=== PATIENT | male | born 1970 | race Caucasian/White ===

== ENCOUNTER 2021-11-19 07:17 | Inpatient (IN) | payer MEDICARE, MEDICAID ==
[~2021-11-19] VITALS: Ht 175.3 cm; Wt 85.3 kg
[2021-11-19 08:13] LABS: HEMATOCRIT. 28.2 % (42.0-52.0); HEMOGLOBIN. 9.4 g/dL (14.0-18.0); MEAN CORPUSCULAR HEMOGLOBIN 31.1 pg (28.0-32.0); MEAN CORPUSCULAR VOLUME 93.7 fL (80.0-94.0); MEAN PLATELET VOLUME 6.9 fl (7.4-10.4); PLATELET 393 x1000/uL (130-400); RED BLOOD CELL COUNT 3.01 mill/uL (4.7-6.1); RED CELL DISTRIBUTION WIDTH 19.1 % (11.6-14.6)
[2021-11-19] MEDS ORDERED: CLONIDINE 0.1MG TABLET PO PRN (08:15)
[2021-11-19 08:18] LABS: CHLORIDE 97 mEq/L (98-107)
[2021-11-19 08:49] LABS: PLATELET ESTIMATE NORMAL
[2021-11-19] MEDS: ASPIRIN 325MG EC TABLET PO SCH ×2 (09:00→09:29)
[2021-11-19 09:18] LABS: PHOSPHORUS 3.1 mg/dL (2.5-4.9)
[2021-11-19] MEDS ORDERED: INSULIN GLARGINE UD 100 UNITS/ML SYR SUBCUT SCH (10:00)
[2021-11-19] MEDS: FOLIC ACID/VITAMIN B COMP W-C TABLET PO SCH (10:06)
[2021-11-19] MEDS: SEVELAMER CARBONATE 800 MG TABLET PO SCH ×3 (10:07→19:57)
[2021-11-19] MEDS: AMLODIPINE 10MG TABLET PO SCH (10:13)
[2021-11-19] MEDS: METOPROLOL TARTRATE 25MG TABLET PO SCH ×2 (10:16→19:55)
[2021-11-19 11:45] LABS: HEPATITIS B SURFACE ANTIGEN NEGATIVE
[2021-11-19] MEDS ORDERED: ACETAMINOPHEN 325MG TABLET PO PRN (13:30)
[2021-11-19] MEDS ORDERED: DOCUSATE SODIUM 100MG CAPSULE PO PRN (13:30)
[2021-11-19] MEDS ORDERED: MORPHINE SULFATE 2 MG/ML CPJ (NOT FOR IM USE) IV PRN (13:30)
[2021-11-19] MEDS ORDERED: MAGNESIUM/ALUMINUM HYDROXIDE/SIMETHICONE 30ML UDC PO PRN (13:30)
[2021-11-19] MEDS ORDERED: GUAIFENESIN 200MG/10ML SUGAR FREE UDC PO PRN (13:30)
[2021-11-19] MEDS ORDERED: ONDANSETRON HCL 4MG/2ML INJ IV PRN (13:30)
[2021-11-19] MEDS ORDERED: ENOXAPARIN 40MG/0.4ML SYR SUBCUT SCH (13:30)
[2021-11-19] MEDS: ENOXAPARIN 30MG/0.3ML SYR SUBCUT SCH (19:55)
[2021-11-19] MEDS: EPOETIN ALFA-EPBX 4,000 UNIT/ML VIAL SUBCUT SCH (19:58)
[2021-11-19] MEDS: ATORVASTATIN CALCIUM 40MG TABLET PO SCH (19:58)
[2021-11-19] MEDS ORDERED: NALOXONE HCL 0.4MG/ML VIAL IV PRN (22:45)
[2021-11-19 23:15] VITALS: BP 161/88
[2021-11-20] MEDS ORDERED: CLON0.1T PO (01:14)
[2021-11-20] MEDS ORDERED: AMLO10TA80 MT (01:14)
[2021-11-20] MEDS ORDERED: LOPERAMIDE HCL 2MG CAPSULE PO NR (01:15)
[2021-11-20] MEDS ORDERED: METO25TA6 MT (01:16)
[2021-11-20] MEDS ORDERED: SEVE800T8 MT (01:16)
[2021-11-20] MEDS ORDERED: ASPI-986 PO (01:16)
[2021-11-20] MEDS ORDERED: INSLIS SUBCUT (01:16)
[2021-11-20] MEDS ORDERED: INSU100I28 SQ (01:17)
[2021-11-20 04:00] VITALS: BP 159/67
[2021-11-20] MEDS ORDERED: DEXTROSE 50% WATER 50ML SYRINGE IV PRN (05:45)
[2021-11-20] MEDS: INSULIN LISPRO 100 UNITS/ML SUBCUT SCH ×4 (07:50→21:00)
[2021-11-20] MEDS: BLOOD SUGAR DIAGNOSTIC STRIP TEST SCH ×4 (07:51→21:41)
[2021-11-20 08:00] VITALS: BP 166/94
[2021-11-20 08:04] LABS: HEMATOCRIT. 25.2 % (42.0-52.0); HEMOGLOBIN. 8.3 g/dL (14.0-18.0); MEAN CORPUSCULAR HEMOGLOBIN 30.9 pg (28.0-32.0); MEAN CORPUSCULAR VOLUME 93.7 fL (80.0-94.0); MEAN PLATELET VOLUME 7.2 fl (7.4-10.4); PLATELET 354 x1000/uL (130-400); RED BLOOD CELL COUNT 2.69 mill/uL (4.7-6.1); RED CELL DISTRIBUTION WIDTH 19.5 % (11.6-14.6)
[2021-11-20 08:12] LABS: CHLORIDE 100 mEq/L (98-107)
[2021-11-20 08:20] LABS: LDL CHOLESTEROL 37 mg/dL (5-100)
[2021-11-20 08:22] LABS: HDL CHOLESTEROL 71 mg/dL (40-59)
[2021-11-20] MEDS: SEVELAMER CARBONATE 800 MG TABLET PO SCH (08:42)
[2021-11-20] MEDS: FOLIC ACID/VITAMIN B COMP W-C TABLET PO SCH (08:42)
[2021-11-20] MEDS ORDERED: INSULIN GLARGINE UD 100 UNITS/ML SYR SUBCUT SCH (10:00)
[2021-11-20] MEDS: AMLODIPINE 10MG TABLET PO SCH (10:35)
[2021-11-20] MEDS: ASPIRIN 325MG EC TABLET PO SCH (10:35)
[2021-11-20] MEDS: METOPROLOL TARTRATE 25MG TABLET PO SCH ×2 (10:36→21:41)
[2021-11-20 12:00] VITALS: BP 180/94
[2021-11-20 14:24] LABS: PLATELET ESTIMATE NORMAL
[2021-11-20] MEDS: ENOXAPARIN 30MG/0.3ML SYR SUBCUT SCH (15:07)
[2021-11-20] MEDS: CLONIDINE 0.1MG TABLET PO PRN (15:10)
[2021-11-20 16:00] VITALS: BP 159/68
[2021-11-20 20:00] VITALS: BP 151/81
[2021-11-20] MEDS: ATORVASTATIN CALCIUM 40MG TABLET PO SCH (21:41)
[2021-11-21] VITALS (18 sets, daily range): BP systolic 144–179; BP diastolic 73–94
[2021-11-21 06:31] LABS: HEMATOCRIT. 24.3 % (42.0-52.0); HEMOGLOBIN. 8.5 g/dL (14.0-18.0); MEAN CORPUSCULAR HEMOGLOBIN 32.5 pg (28.0-32.0); MEAN CORPUSCULAR VOLUME 92.7 fL (80.0-94.0); PLATELET 324 x1000/uL (130-400); RED BLOOD CELL COUNT 2.62 mill/uL (4.7-6.1); RED CELL DISTRIBUTION WIDTH 19.8 % (11.6-14.6)
[2021-11-21] MEDS: BLOOD SUGAR DIAGNOSTIC STRIP TEST SCH ×4 (06:37→21:00)
[2021-11-21 06:56] LABS: CHLORIDE 100 mEq/L (98-107)
[2021-11-21 07:10] LABS: PHOSPHORUS 4.2 mg/dL (2.5-4.9)
[2021-11-21] MEDS: INSULIN LISPRO 100 UNITS/ML SUBCUT SCH ×4 (07:32→22:27)
[2021-11-21] MEDS: METOPROLOL TARTRATE 25MG TABLET PO SCH ×2 (08:09→22:26)
[2021-11-21] MEDS: AMLODIPINE 10MG TABLET PO SCH (08:09)
[2021-11-21] MEDS: FOLIC ACID/VITAMIN B COMP W-C TABLET PO SCH (08:09)
[2021-11-21] MEDS: ASPIRIN 325MG EC TABLET PO SCH (08:10)
[2021-11-21] MEDS: CLONIDINE 0.1MG TABLET PO PRN (08:10)
[2021-11-21] MEDS ORDERED: REGADENOSON 0.4 MG/5 ML IV NR (08:30)
[2021-11-21] MEDS ORDERED: REGADENOSON 0.4 MG/5 ML IV ONE (09:34)
[2021-11-21] MEDS: HYDRALAZINE HCL 25MG TABLET PO SCH ×2 (11:16→22:38)
[2021-11-21 13:00] LABS: INR 1.1; PROTHROMBIN TIME 11.8 sec (9.6-11.0)
[2021-11-21 13:23] LABS: BG BASE EXCESS 0.1 mmol/L (-2.0-2.0); BG CARBOXYHEMOGLOBIN 0.2 % (0.5-1.5); BG FRACTION INSPIRED OXYGEN 28; BG HCO3 ACT 23.8 mmol/L (22.0-26.0); BG METHEMOGLOBIN 0.3 % (0.0-1.5); BG OXYHEMOGLOBIN 90.5 % (94.0-97.0); BG PO2 63.4 mmHg (75.0-100.0); BG SAMPLE SITE RIGHT RADIAL; BG TOTAL HEMOGLOBIN 9.7 g/dL (12.0-18.0); BG VENT MODE NASAL CANNULA
[2021-11-21] MEDS ORDERED: LIDOCAINE HCL 1% 20ML VIAL (Pyxis) INJ ONE (13:45)
[2021-11-21] MEDS ORDERED: FENTANYL CITRATE/PF 50MCG/ML 2ML VIAL ONE (13:45)
[2021-11-21] MEDS ORDERED: SODIUM BICARBONATE 4% (2.4MEQ) 5ML VIAL IV ONE (13:45)
[2021-11-21 14:04] LABS: PLATELET ESTIMATE NORMAL
[2021-11-21] MEDS ORDERED: FENTANYL CITRATE/PF 50MCG/ML 2ML VIAL IV SCH (15:15)
[2021-11-21] MEDS: HYDROCODONE/ACETAMINOPHEN 5/325MG TABLET PO PRN (22:25)
[2021-11-21] MEDS: ATORVASTATIN CALCIUM 40MG TABLET PO SCH (22:25)
[2021-11-21] MEDS: EPOETIN ALFA-EPBX 4,000 UNIT/ML VIAL SUBCUT SCH (22:40)
[2021-11-22] VITALS: BP 160/79
[2021-11-22 04:00] VITALS: BP 154/82
[2021-11-22] MEDS: BLOOD SUGAR DIAGNOSTIC STRIP TEST SCH ×4 (07:44→21:00)
[2021-11-22] MEDS: INSULIN LISPRO 100 UNITS/ML SUBCUT SCH ×4 (07:44→21:00)
[2021-11-22 08:00] VITALS: BP 160/82
[2021-11-22 08:17] LABS: HEMATOCRIT. 26.3 % (42.0-52.0); HEMOGLOBIN. 8.7 g/dL (14.0-18.0); MEAN CORPUSCULAR HEMOGLOBIN 31.1 pg (28.0-32.0); MEAN PLATELET VOLUME 7.5 fl (7.4-10.4); PLATELET 321 x1000/uL (130-400); RED CELL DISTRIBUTION WIDTH 19.9 % (11.6-14.6)
[2021-11-22] MEDS: FOLIC ACID/VITAMIN B COMP W-C TABLET PO SCH (09:30)
[2021-11-22] MEDS: HYDRALAZINE HCL 25MG TABLET PO SCH (09:33)
[2021-11-22] MEDS: HYDROCODONE/ACETAMINOPHEN 5/325MG TABLET PO PRN ×2 (09:34→21:46)
[2021-11-22] MEDS: AMLODIPINE 10MG TABLET PO SCH (09:34)
[2021-11-22] MEDS: METOPROLOL TARTRATE 25MG TABLET PO SCH ×2 (09:34→21:46)
[2021-11-22 10:46] LABS: PLATELET ESTIMATE NORMAL
[2021-11-22 12:00] VITALS: BP 109/73
[2021-11-22 16:00] VITALS: BP 140/76
[2021-11-22 20:00] VITALS: BP 169/80
[2021-11-22] MEDS: ATORVASTATIN CALCIUM 40MG TABLET PO SCH (21:45)
[2021-11-22] MEDS: HYDRALAZINE HCL 50MG TABLET PO SCH (21:49)
[2021-11-23 00:43] VITALS: BP 148/76
[2021-11-23 04:26] VITALS: BP 145/77
[2021-11-23] MEDS: BLOOD SUGAR DIAGNOSTIC STRIP TEST SCH ×4 (07:20→21:00)
[2021-11-23] MEDS: INSULIN LISPRO 100 UNITS/ML SUBCUT SCH ×4 (07:50→21:00)
[2021-11-23 08:00] VITALS: BP 160/82
[2021-11-23] MEDS: FOLIC ACID/VITAMIN B COMP W-C TABLET PO SCH (09:37)
[2021-11-23] MEDS: AMLODIPINE 10MG TABLET PO SCH (09:38)
[2021-11-23] MEDS: METOPROLOL TARTRATE 25MG TABLET PO SCH ×2 (09:38→22:06)
[2021-11-23] MEDS: HYDRALAZINE HCL 50MG TABLET PO SCH ×2 (09:38→22:06)
[2021-11-23 12:00] VITALS: BP 148/73
[2021-11-23 16:00] VITALS: BP 132/65
[2021-11-23 20:00] VITALS: BP 157/83
[2021-11-23] MEDS: ATORVASTATIN CALCIUM 40MG TABLET PO SCH (22:06)
[2021-11-23] MEDS: HYDROCODONE/ACETAMINOPHEN 5/325MG TABLET PO PRN (22:07)
[2021-11-24 00:11] VITALS: BP 143/77
[2021-11-24 04:49] VITALS: BP 141/77
[2021-11-24] MEDS: BLOOD SUGAR DIAGNOSTIC STRIP TEST SCH ×2 (06:55→12:12)
[2021-11-24 07:04] LABS: HEMATOCRIT. 25.5 % (42.0-52.0); HEMOGLOBIN. 8.5 g/dL (14.0-18.0); MEAN CORPUSCULAR HEMOGLOBIN 31.6 pg (28.0-32.0); MEAN CORPUSCULAR VOLUME 94.6 fL (80.0-94.0); MEAN PLATELET VOLUME 7.6 fl (7.4-10.4); PLATELET 308 x1000/uL (130-400); RED CELL DISTRIBUTION WIDTH 19.8 % (11.6-14.6)
[2021-11-24 07:35] LABS: CHLORIDE 104 mEq/L (98-107)
[2021-11-24] MEDS: INSULIN LISPRO 100 UNITS/ML SUBCUT SCH ×2 (07:50→12:12)
[2021-11-24 08:20] VITALS: BP 154/75
[2021-11-24] MEDS: HYDRALAZINE HCL 50MG TABLET PO SCH (09:23)
[2021-11-24] MEDS: AMLODIPINE 10MG TABLET PO SCH (09:23)
[2021-11-24] MEDS: FOLIC ACID/VITAMIN B COMP W-C TABLET PO SCH (09:23)
[2021-11-24] MEDS: METOPROLOL TARTRATE 25MG TABLET PO SCH (09:23)
[2021-11-24 11:53] VITALS: BP 151/75
[2021-11-24 15:13] VITALS: BP 151/75
[2021-11-24 15:56] VITALS: BP 142/78
[2021-11-24 16:00] LABS: PLATELET ESTIMATE NORMAL
== END 2021-11-24 16:32 | disposition home health service (06) | DRG 205 ==
LOC: ER 07:56 → MICUSO 10:12 → EDBEDREQ 10:17 → 6WST 22:34
PROVIDERS: ADMIT Hospitalist; ATTEND Hospitalist
PROC: 5A1D70Z Performance of Urinary Filtration, Intermittent, Less than 6 Hours Per Day (ICD-10-PCS; principal; 2021-11-20)
PROC: 0W9B30Z Drainage of Left Pleural Cavity with Drainage Device, Percutaneous Approach (ICD-10-PCS; 2021-11-21)
PROC: 5A1D70Z Performance of Urinary Filtration, Intermittent, Less than 6 Hours Per Day (ICD-10-PCS; 2021-11-22)
PROC: 5A1D70Z Performance of Urinary Filtration, Intermittent, Less than 6 Hours Per Day (ICD-10-PCS; 2021-11-24)
DX: M94.0 Chondrocostal junction syndrome [Tietze] (principal); E43 Unspecified severe protein-calorie malnutrition; N18.6 End stage renal disease; I13.2 Hypertensive heart and chronic kidney disease with heart failure and with stage 5 chronic kidney disease, or end stage renal disease; I69.351 Hemiplegia and hemiparesis following cerebral infarction affecting right dominant side; N25.81 Secondary hyperparathyroidism of renal origin; Z94.1 Heart transplant status; L97.419 Non-pressure chronic ulcer of right heel and midfoot with unspecified severity; J91.8 Pleural effusion in other conditions classified elsewhere; J93.9 Pneumothorax, unspecified; J98.11 Atelectasis; I25.10 Atherosclerotic heart disease of native coronary artery without angina pectoris; E11.621 Type 2 diabetes mellitus with foot ulcer; E11.22 Type 2 diabetes mellitus with diabetic chronic kidney disease; I50.9 Heart failure, unspecified; I27.20 Pulmonary hypertension, unspecified; I25.5 Ischemic cardiomyopathy; E11.51 Type 2 diabetes mellitus with diabetic peripheral angiopathy without gangrene; E78.5 Hyperlipidemia, unspecified; Z20.822 Contact with and (suspected) exposure to COVID-19; I45.10 Unspecified right bundle-branch block; Z99.2 Dependence on renal dialysis; Z95.1 Presence of aortocoronary bypass graft; Z79.899 Other long term (current) drug therapy; Z83.3 Family history of diabetes mellitus; Z82.49 Family history of ischemic heart disease and other diseases of the circulatory system; Z82.3 Family history of stroke; Z87.01 Personal history of pneumonia (recurrent); Z89.422 Acquired absence of other left toe(s); Z89.421 Acquired absence of other right toe(s); I69.322 Dysarthria following cerebral infarction; Z68.27 Body mass index [BMI] 27.0-27.9, adult
CPT/HCPCS: 36415; 36600; 71045; 71250; 77012; 78452; 80048; 80053; 80061; 82375; 82805; 82962; 83036; 83735; 83880; 84100; 84484; 85025; 86705; 86709; 86803; 87075; 87340; 87426; 93005; 93017; 93306; 93970; 99285; A9500; C1729; J0885; J1650; J1815; J2785; J3010; J3490

== ENCOUNTER → 2021-12-12 | Day surgery (SDC) | payer MEDICARE, MEDICAID ==
[~2021-12-12] MED LIST: AMLO10TA80 MT; ASPI-986 PO; CLON0.1T PO; INSLIS SUBCUT; INSU100I28 SQ; METO25TA6 MT; SEVE800T8 MT
== END | disposition home or self-care (01) ==
LOC: RADANGIO 07:46
PROVIDERS: ATTEND Internal Medicine Nephrology
DX: I51.7 Cardiomegaly (principal); Z79.82 Long term (current) use of aspirin; Z79.4 Long term (current) use of insulin; Z79.899 Other long term (current) drug therapy; Z98.890 Other specified postprocedural states; Z83.3 Family history of diabetes mellitus; Z20.822 Contact with and (suspected) exposure to COVID-19
CPT/HCPCS: 71045; 76000; 87426

== ENCOUNTER 2024-01-20 20:04 | Emergency (ER) | payer MEDICARE, MEDICAID ==
[~2024-01-20] VITALS: Ht 177.8 cm; Wt 82.0 kg
[2024-01-20 20:37] VITALS: O2SAT 100
[2024-01-20 22:07] LABS: BASOPHILS % 0.8 % (0.0-2.0); EOSINOPHILS % 7.2 % (0.0-5.0); HEMATOCRIT. 32.8 % (42.0-52.0); HEMOGLOBIN. 10.6 g/dL (14.0-18.0); LYMPHOCYTES % 18.8 % (20.0-50.0); MEAN CORPUSCULAR HEMOGLOBIN 27.9 pg (28.0-32.0); MEAN CORPUSCULAR HGB CONC 32.2 g/dL (31.0-37.0); MEAN CORPUSCULAR VOLUME 86.7 fL (80.0-94.0); MEAN PLATELET VOLUME 7.7 fl (7.4-10.4); MONOCYTES % 8.7 % (2.0-8.0); NEUTROPHILS % 64.5 % (40.0-76.0); PLATELET 326 x1000/uL (130-400); RED BLOOD CELL COUNT 3.79 mill/uL (4.7-6.1); RED CELL DISTRIBUTION WIDTH 16.2 % (11.6-14.6); WHITE BLOOD COUNT 10.4 x1000/uL (4.5-11.0)
[2024-01-20 22:18] LABS: PARTIAL THROMBOPLASTIN TIME 26.8 sec (23.4-31.0); PROTHROMBIN TIME 10.9 sec (9.6-11.0)
[2024-01-20 22:21] LABS: ALANINE AMINOTRANSFERASE 8 IU/L (10-49); ALBUMIN 4.4 g/dL (3.2-4.8); ASPARTATE AMINOTRANSFERASE 15 IU/L (<34); BILIRUBIN TOTAL < 0.2 mg/dL (0.1-1.0); CALCIUM 9.3 mg/dL (8.7-10.4); CARBON DIOXIDE 29 mEq/L (21-32); CHLORIDE 101 mEq/L (98-107); GLUCOSE 181 mg/dL (70-105); POTASSIUM 4.4 mEq/L (3.5-5.1); PROTEIN TOTAL 8.1 g/dL (6.0-8.3); SODIUM 137 mEq/L (136-145); UREA NITROGEN BLOOD 31 mg/dL (9-23)
[2024-01-20 23:32] VITALS: BP 168/76; PULSE 79; RESP 18; TEMP 97.9
== END 2024-01-20 23:30 | disposition home or self-care (01) ==
LOC: ER 20:04
DX: T82.838A Hemorrhage due to vascular prosthetic devices, implants and grafts, initial encounter (principal); E11.9 Type 2 diabetes mellitus without complications; I12.0 Hypertensive chronic kidney disease with stage 5 chronic kidney disease or end stage renal disease; N18.6 End stage renal disease; Z99.2 Dependence on renal dialysis; Z86.73 Personal history of transient ischemic attack (TIA), and cerebral infarction without residual deficits; Z98.890 Other specified postprocedural states; Z88.8 Allergy status to other drugs, medicaments and biological substances; X58.XXXA Exposure to other specified factors, initial encounter; Y93.89 Activity, other specified; Y92.89 Other specified places as the place of occurrence of the external cause; Y99.8 Other external cause status
CPT/HCPCS: 36415; 80053; 85025; 99283